=== PATIENT | male | born 2000 | race American Indian/Alaskan Native ===

== ENCOUNTER 2021-11-07 21:42 | Emergency (ER) | payer SELFPAY ==
--- NOTE | 2021-11-08 02:26 | Emergency Department Report ---
ED General Adult HPI - General Chief complaint: Dental/Oral Stated complaint: TOOTHACHE/HEAD/ABD PAIN Time Seen by Provider: 11/08/21 01:27 Source: patient Mode of arrival: Ambulatory Limitations: No Limitations - History of Present Illness Initial comments: 21-year-old F [place] male presents emerged from complaining of pain to the right lower dental molar region off and on for several months and has reemerged over the last week progressively worse with palpation, eating and drinking certain tools due to a severely eroded dental cavity which he has yet not yet been able to repair. Reports no hemoptysis no hematemesis no fevers, chills, sweats. No chest pain or palpitations. Also reports having a flareup of genital herpes as he has a known history and began to have some lesions show up in the genital region seeking treatment for that area reports no hematuria or dysuria no penile discharge no testicular tenderness. Reports no nausea vom iting -: Gradual Quality: dull Consistency: constant Improves with: none Worsens with: none Associated Symptoms: denies: cough, diaphoresis, syncope, weakness Treatments Prior to Arrival: none - Related Data Previous Rx's Medication Instructions Recorded Last Taken Type Acyclovir [Zovirax Tab] 800 mg PO 5XD #35 tab 11/08/21 Unknown Rx Amoxicillin [Amoxicillin TAB] 875 mg PO BID #20 11/08/21 Unknown Rx ED Review of Systems ROS: Stated complaint: TOOTHACHE/HEAD/ABD PAIN Other details as noted in HPI Comment: All other systems reviewed and negative ED Past Medical Hx - Medications Home Medications: Home Medications Medication Instructions Recorded Confirmed Last Taken Type Acyclovir [Zovirax Tab] 800 mg PO 5XD #35 tab 11/08/21 Unknown Rx Amoxicillin [Amoxicillin TAB] 875 mg PO BID #20 11/08/21 Unknown Rx ED Physical Exam - General Limitations: No Limitations General appearance: alert, in no apparent distress - Head Head exam: Present: atraumatic, normocephalic - Eye Eye exam: Present: normal appearance, PERRL, EOMI Pupils: Present: normal accommodation - ENT ENT exam: Present: normal exam, normal orophraynx, mucous membranes moist, TM's normal bilaterally, other (Severe dental erosion to the left lower molar. With some adjacent gingival erythema and redness. Tongue and uvula midline airway) - Neck Neck exam: Present: normal inspection, full ROM - Respiratory Respiratory exam: Present: normal lung sounds bilaterally. Absent: respiratory distress, wheezes, rales, rhonchi, accessory muscle use, decreased breath sounds - Cardiovascular Cardiovascular Exam: Present: regular rate, normal rhythm. Absent: systolic murmur, diastolic murmur, rubs, gallop - GI/Abdominal GI/Abdominal exam: Present: soft, normal bowel sounds - Rectal Rectal exam: Present: deferred - External exam: Present: other (Herpetic lesions to the genital area. No cellulitis or) - Extremities Exam Extremities exam: Present: normal inspection, full ROM, normal capillary refill - Back Exam Back exam: Present: normal inspection. Absent: CVA tenderness (R), CVA tenderness (L), paraspinal tenderness, vertebral tenderness - Neurological Exam Neurological exam: Present: alert, oriented X3, CN II-XII intact, normal gait. Absent: motor sensory deficit, reflexes normal - Psychiatric Psychiatric exam: Present: normal affect, normal mood - Skin Skin exam: Present: warm, dry, intact, normal color. Absent: rash, diaphoretic, erythema, abrasion, ecchymosis ED Course Vital Signs 11/07/21 21:45 Temperature 98.5 F Pulse Rate 81 Respiratory 16 Rate Blood Pressure 142/96 O2 Sat by Pulse 96 Oximetry Critical care attestation.: If time is entered above; I have spent that time in minutes in the direct care of this critically ill patient, excluding procedure time. ED Disposition Disposition: HOME / SELF CARE / HOMELESS Condition: Stable Instructions: Dental Abscess, Genital Herpes, Viral Illness, Adult Prescriptions: Amoxicillin [Amoxicillin TAB] 875 mg PO BID #20 Acyclovir [Zovirax Tab] 800 mg PO 5XD #35 tab Referrals: [facility] [Provider Group] - 3-5 Days
[2021-11-08 02:54] VITALS: BP 153/94
[2021-11-08] MEDS ORDERED: HYDROcodone/ACETAMINOPHEN 5-325 MG TAB PO ONE (03:38)
== END 2021-11-08 03:00 | disposition home or self-care (01) ==
LOC: ED 21:42
DX: K08.89 Other specified disorders of teeth and supporting structures (principal); R00.2 Palpitations
CPT/HCPCS: 99282

== ENCOUNTER 2021-12-31 17:28 | Emergency (ER) | payer SELFPAY ==
[2021-12-31 19:30] VITALS: BP 112/78
[2021-12-31] MEDS ORDERED: HYDROcodone/ACETAMINOPHEN 5-325 MG TAB PO STA (20:44)
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
== END 2021-12-31 23:07 | disposition home or self-care (01) ==
LOC: ED 17:28
DX: K02.9 Dental caries, unspecified (principal); M79.662 Pain in left lower leg
CPT/HCPCS: 99282

== ENCOUNTER 2022-01-13 15:21 | Emergency (ER) | payer SELFPAY ==
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
[2022-01-13 20:32] VITALS: BP 130/70
== END 2022-01-13 20:32 | disposition home or self-care (01) ==
LOC: ED 15:21
DX: M79.605 Pain in left leg (principal); V89.2XXA Person injured in unspecified motor-vehicle accident, traffic, initial encounter; Y93.89 Activity, other specified; Y92.89 Other specified places as the place of occurrence of the external cause; Y99.8 Other external cause status
CPT/HCPCS: 72040; 99283

== ENCOUNTER 2022-01-23 17:46 | Emergency (ER) | payer SELFPAY ==
[2022-01-23 18:19] VITALS: BP 111/73
[2022-01-23 20:19] LABS: Bilirubin,Urine NEG (Negative); Blood,Urine MOD (Negative); Color,Urine Yellow (Yellow); Mucus,Urine FEW /HPF; RBC,Urine > 182.0 /HPF (0.0-6.0); Urobilinogen,Urine < 2.0 mg/dL (<2.0)
== END 2022-01-24 08:07 | disposition left against medical advice (07) ==
LOC: ED 17:46
DX: R31.9 Hematuria, unspecified (principal); Z53.21 Procedure and treatment not carried out due to patient leaving prior to being seen by health care provider
CPT/HCPCS: 81001